=== PATIENT | female | born 1965 | race Caucasian/White ===

== ENCOUNTER → 2019-01-26 | Outpatient (CLI) | payer BC ==
[~2019-01-26] MED LIST: NO HOME MEDICATIONS
== END ==
LOC: MC.RAD 11:36
DX: Z12.31 Encounter for screening mammogram for malignant neoplasm of breast (principal)

== ENCOUNTER → 2023-03-03 | Outpatient (CLI) | payer OTHER | LOC: COL.RAD 09:36 | DX: M25.552 Pain in left hip (principal) | CPT/HCPCS: J0665; J3301; Q9967 ==